=== PATIENT | female | born 1980 | race Two or more races ===

== ENCOUNTER 2017-02-23 12:45 | Emergency (ER) | payer MEDICAID ==
[~2017-02-23] VITALS: Ht 167.6 cm; Wt 91.0 kg
[2017-02-23] MEDS ORDERED: KETOROLAC 60MG/2ML VIAL IM ONE (18:15)
[2017-02-23 19:10] VITALS: BP 106/68
== END 2017-02-23 19:26 | disposition home or self-care (01) ==
LOC: ER 14:06
DX: M54.9 Dorsalgia, unspecified (principal); M79.1 Myalgia; E78.00 Pure hypercholesterolemia, unspecified; F17.210 Nicotine dependence, cigarettes, uncomplicated; V43.52XA Car driver injured in collision with other type car in traffic accident, initial encounter; Y92.411 Interstate highway as the place of occurrence of the external cause; Y93.89 Activity, other specified
CPT/HCPCS: 81025; 96372; 99283; J1885